=== PATIENT | male | born 1945 | race Caucasian/White ===

== ENCOUNTER → 2018-06-02 09:53 | Outpatient (CLI) | payer MEDICARE, OTHER, SELFPAY ==
[2018-06-02 10:27] LABS: Hematocrit 48.3 % (42.0-52.0); Hemoglobin 15.7 g/dL (14.1-18.0)
[2018-06-02 12:19] LABS: Alanine Aminotransferase 30 U/L (12-78); Albumin Level 3.6 gm/dL (3.4-5.0); Albumin/Globulin Ratio 0.9 (1.1-1.8); Alkaline Phosphatase 95 U/L (46-116); Anion Gap 15.4 mEq/L (5-15); Aspartate Amino Transferase 17 U/L (15-37); Bilirubin,Total 0.5 mg/dL (0.2-1.0); Blood Urea Nitrogen 15 mg/dL (7-18); Calcium 9.2 mg/dL (8.5-10.1); Carbon Dioxide 26 mmol/L (21.0-32.0); Chloride 104 mmol/L (98-107); Creatinine,Serum 0.82 mg/dL (0.70-1.30); Estimated Glomerular Filt Rate 92 ml/min (>60); GFR (African American) 111 ML/MIN (>60); Globulin 3.8 gm/dl (1.3-3.2); Glucose 123 mg/dL (74-106); Potassium 4.4 mmoL/L (3.5-5.1); Sodium 141 mmol/L (136-145); Total Protein,Serum 7.4 gm/dL (6.4-8.2)
== END ==
PROVIDERS: PCP Emergency Medicine; Visit Provider Otolaryngology
DX: Z01.818 Encounter for other preprocedural examination (principal)
CPT/HCPCS: 36415; 80053; 85014; 85018; 93005